=== PATIENT | male | born 1950 | race Caucasian/White ===

== ENCOUNTER 2017-07-10 18:01 | Inpatient (IN) | payer BC ==
[~2017-07-10] VITALS: Ht 172.7 cm; Wt 87.6 kg
[2017-07-10] MEDS ORDERED: KETOROLAC 15 MG INJ IV STA (18:19)
[2017-07-10] MEDS ORDERED: ONDANSETRON 4 MG INJ IV STA (18:19)
[2017-07-10] MEDS ORDERED: SOD CHLORIDE 0.9% 1,000 ML IV STA (18:19)
[2017-07-10] MEDS ORDERED: NITROGLYCERIN (SL) 0.4 MG TAB SL ONE (18:30)
[2017-07-10] MEDS ORDERED: ASPIRIN 81 MG TAB PO ONE (18:30)
[2017-07-10 18:37] LABS: BASOPHIL # 0.1 10^3/ul (0.0-0.1); BASOPHILS % 0.7 % (0.0-2.0); EOSINOPHILS % 0.1 % (0.0-7.0); HEMATOCRIT 43.8 % (42.0-52.0); HEMOGLOBIN 14.9 g/dl (14.0-18.0); LYMPHOCYTES # 1.3 10^3/ul (0.8-2.9); LYMPHOCYTES % 11.7 % (15.0-51.0); MEAN CORPUSCULAR HEMOGLOBIN 30.3 pg (29.0-33.0); MEAN CORPUSCULAR VOLUME 89.2 fl (82.0-101.0); MEAN PLATELET VOLUME 9.5 fl (7.4-10.4); MONOCYTE # 0.7 10^3/ul (0.3-0.9); MONOCYTES % 6.9 % (0.0-11.0); NEUTROPHIL # 8.6 10^3/ul (1.6-7.5); NEUTROPHILS % 80.1 % (39.0-77.0); PLATELET COUNT 156 10^3/UL (140-415); RED BLOOD COUNT 4.91 10^6/ul (4.70-6.10); RED CELL DISTRIBUTION WIDTH 12.7 % (11.5-14.5); WHITE BLOOD COUNT 10.7 10^3/ul (4.8-10.8)
[2017-07-10 18:57] LABS: INR 1.01; PROTIME 13.3 Sec (12.2-14.2)
[2017-07-10 19:00] LABS: ALANINE AMINOTRANSFERASE 31 IU/L (13-69); ALBUMIN 3.7 g/dl (3.3-4.9); ALBUMIN/GLOBULIN RATIO 1.19; ALKALINE PHOSPHATASE 129 IU/L (42-121); ANION GAP 11 (8-16); ASPARTATE AMINO TRANSFERASE 14 IU/L (15-46); BILIRUBIN,INDIRECT 0.1 mg/dl (0-1.1); BILIRUBIN,TOTAL 0.1 mg/dl (0.2-1.3); BLOOD UREA NITROGEN 12 mg/dl (7-20); CALCIUM 8.8 mg/dl (8.4-10.2); CARBON DIOXIDE 25 mmol/L (21-31); CHLORIDE 107 mmol/L (97-110); CREATININE 1.03 mg/dl (0.61-1.24); GLUCOSE 128 mg/dl (70-220); POTASSIUM 4.2 mmol/L (3.5-5.1); SODIUM 139 mmol/L (135-144); TOTAL PROTEIN 6.8 g/dl (6.1-8.1)
--- NOTE | 2017-07-10 19:20 | RADRPT ---
PROCEDURE: XR Chest. CLINICAL INDICATION: Abdominal pain. TECHNIQUE: PA and Lateral views of the chest were obtained. COMPARISON: None. FINDINGS: Heart size is at upper limits of normal. Tortuous calcified thoracic aorta. The lungs are clear. No signs of pleural fluid or pneumothorax are seen. The osseous structures and soft tissues are unremar kable. IMPRESSION: No evidence for active cardiopulmonary disease. RPTAT: [facility] Physician Srinivasa Date Time Electronically viewed and signed by Physician Srinivasa on 07/10/2017 19:20 RS/
[2017-07-10 19:24] LABS: TROPONIN-I < 0.012 ng/ml (0.00-0.12)
--- NOTE | 2017-07-10 19:29 | ERA ---
ER Documentation Chief Complaint Date/Time DATE: 07/10/17 TIME: 19:28 Chief Complaint BIB r90 cp @ 1635 W/DIAPHRETIC& NAUSEA, RELIEF NITRO X3 & 162mg aspirin HPI 66-year-old man brought in by EMS for chest pain which began at rest described as pressure-like sensation substernally. He states he has had similar episodes in the past and has a very strong history of coronary artery disease and multiple coronary artery stents. Discomfort began today at rest while he was at work, it was associated with shortness of breath, diaphoresis, and nausea. He denies vomiting, and states he felt better with nitroglycerin administration by EMS. He also used aspirin and Plavix prior to arrival. Patient denies abdominal pain, no vomiting or diarrhea, no headache or blurry vision. Patient was transported to by EMS without further complications. ROS All systems reviewed and are negative except as per history of present illness. Medications Home Meds Reported Medications Atorvastatin Calcium* (Atorvastatin Calcium*) 20 Mg Tablet, 20 MG PO QHS, #30 TAB 07/10/17 Aspirin* (Aspirin* EC) 325 Mg Tab, 325 MG PO DAILY, TAB 07/10/17 Clopidogrel Bisulfate (Clopidogrel) 75 Mg Tablet, 75 MG PO DAILY, #30 TAB 07/10/17 Allergies Allergies: Coded Allergies: No Known Allergy (Verified , 07/10/17) PMhx/Soc History of Surgery: Yes (LT KNEE) Anesthesia Reaction: No Hx Neurological Disorder: No Hx Respiratory Disorders: Yes (EMPHYSEMA ) Hx Cardiac Disorders: Yes (CT X3 W/ 7 STENTS) Hx Psychiatric Problems: No Hx Miscellaneous Medical Probl: No Hx Alcohol Use: No Hx Substance Use: No Hx Tobacco Use: Yes (1 PACK DAY ) Smoking Status: Current every day smoker FmHx Family History: No diabetes Physical Exam Vitals Vital Signs Date Time Temp Pulse Resp B/P Pulse Ox O2 Delivery O2 Flow Rate FiO2 07/10/17 20:18 97.4 59 14 125/81 99 Room Air 07/10/17 18:47 71 12 113/81 99 Room Air 07/10/17 18:10 98.4 73 16 127/89 97 Physical Exam GENERAL: Well-developed, well-nourished, well-hydrated, in no apparent distress , looks nontoxic in appearance HEENT: Moist mucous membranes, pink conjunctiva, no cervical spine tenderness or step-off deformities, no goiter, no jaundice or icterus, extraocular movements intact without pain. No submandibular induration, and no pharyngeal erythema NEURO: Alert and oriented 3, cranial nerves II through XII intact bilaterally, pupils equal round reactive to light, no focal deficits or facial asymmetry, sensation intact distally Strength 5/5 in upper and lower extremities bilaterally CARDIAC: Regular rate and rhythm, no murmurs rubs or gallops LUNGS: Clear bilaterally no wheezing crackles or stridor ABDOMEN: Soft nontender, no guarding, no rigidity, no rebound, no psoas sign no obturator sign. Normoactive bowel sounds SKIN: Warm and dry to touch, no abrasions, contusions, or hematomas, no lacerations, no ecchymosis, no target lesions, and without ulcers EXTREMITIES: No clubbing cyanosis or edema, calves are bilaterally symmetrical, no Homans sign, no popliteal cord sign. Distal pulses equal and bilateral PSYCH: Normal affect without agitation or irritability Result Diagram: 07/10/17182407/10/171824 Results 24 hrs Laboratory Tests Test 07/10/17 18:25 White Blood Count 10.710^3/ul Red Blood Count 4.9110^6/ul Hemoglobin 14.9g/dl Hematocrit 43.8% Mean Corpuscular Volume 89.2fl Mean Corpuscular Hemoglobin 30.3pg Mean Corpuscular Hemoglobin Concent 34.0g/dl Red Cell Distribution Width 12.7% Platelet Count 99381^3/UL Mean Platelet Volume 9.5fl Neutrophils % 80.1% Lymphocytes % 11.7% Monocytes % 6.9% Eosinophils % 0.1% Basophils % 0.7% Nucleated Red Blood Cells % 0.0/100WBC Neutrophils # 8.610^3/ul Lymphocytes # 1.310^3/ul Monocytes # 0.710^3/ul Eosinophils # 0.010^3/ul Basophils # 0.110^3/ul Nucleated Red Blood Cells # 0.010^3/ul Prothrombin Time 13.3Sec Prothrombin Time Ratio 1.0 INR International Normalized Ratio 1.01 Sodium Level 139mmol/L Potassium Level 4.2mmol/L Chloride Level 107mmol/L Carbon Dioxide Level 25mmol/L Anion Gap 11 Blood Urea Nitrogen 12mg/dl Creatinine 1.03mg/dl Glucose Level 128mg/dl Calcium Level 8.8mg/dl Total Bilirubin 0.1mg/dl Direct Bilirubin 0.00mg/dl Indirect Bilirubin 0.1mg/dl Aspartate Amino Transf (AST/SGOT) 14IU/L Alanine Aminotransferase (ALT/SGPT) 31IU/L Alkaline Phosphatase 129IU/L Troponin I < 0.012ng/ml Total Protein 6.8g/dl Albumin 3.7g/dl Globulin 3.10g/dl Albumin/Globulin Ratio 1.19 Lipase 162U/L Current Medications Medications (Trade) Dose Ordered Sig/Chay Route PRN Reason Start Time Stop Time Status Last Admin Dose Admin Sodium Chloride (NS) 1,000 ml @ 1,000 mls/hr Q1H STAT IV 07/10/17 18:19 07/10/17 19:18 DC 07/10/17 18:43 Ondansetron HCl (Zofran Inj) 4 mg ONCE STAT IV 07/10/17 18:19 07/10/17 18:20 DC Ketorolac Tromethamine (Toradol) 15 mg ONCE STAT IV 07/10/17 18:19 07/10/17 18:20 DC Aspirin (Aspirin) 162 mg ONCE ONCE PO 07/10/17 18:30 07/10/17 18:31 DC Nitroglycerin (Nitroglycerin (Sl Tab) 0.4 Mg) 1 tab ONCE ONCE SL 07/10/17 18:30 07/10/17 18:31 DC IV Flush (NS 3 ml) 3 ml PER PROTOCOL IV 07/10/17 20:00 UNV Lorazepam (Ativan) 0.5 mg Q8H PRN PO ANXIETY 07/10/17 20:00 UNV Ondansetron HCl (Zofran Tab) 4 mg Q6H PRN PO NAUSEA AND/OR VOMITING 07/10/17 20:00 UNV Aspirin (Aspirin) 81 mg DAILY PO 07/11/17 09:00 UNV Clopidogrel Bisulfate (plaVIX) 75 mg DAILY PO 07/11/17 09:00 UNV Famotidine (Pepcid) 20 mg Q12 PO 07/10/17 21:00 UNV Heparin Sodium (Porcine) (Heparin (5000 Units/0.5 ml)) 5,000 unit Q8 SC 07/10/17 22:00 UNV Calcium Carbonate (Tums) 500 mg QID PO 07/10/17 21:00 UNV Metoprolol Tartrate (Lopressor) 12.5 mg BID PO 07/10/17 21:00 UNV Nitroglycerin (Nitroglycerin (Sl Tab) 0.4 Mg) 1 tab Q5M PRN SL CHEST PAIN 07/10/17 20:00 UNV Aspirin (Ecotrin) 325 mg DAILY PO 07/11/17 09:00 UNV Atorvastatin Calcium (Lipitor) 20 mg QHS PO 07/10/17 21:00 UNV Clopidogrel Bisulfate (plaVIX) 75 mg DAILY PO 07/11/17 09:00 UNV Procedures/MDM IV line was established patient was placed on cardiac exercise physiologist rhythm strip revealed a sinus rhythm at about 70 bpm with upright P and T waves. Patient was afebrile. I administered aspirin 162 mg p.o. for cardioprotective measures, nitroglycerin 0.4 mg sublingual 1. Patient had already used medications prior to arrival including clopidogrel. EKG performed, read by me: 68 bpm, normal sinus rhythm, normal axis, no acute ST segment changes, narrow QRS complex, with good R-wave progression in precordial leads. Chest X-ray 1V Interpreted by me: Soft Tissue: No acute abnormalities Bones: No acute abnormalities Mediastinum/Cardiac Silhouette/Lungs: No acute abnormalities CT scan of the abdomen and pelvis was performed revealing chronic calcifications and mild infrarenal abdominal aortic aneurysm. I suspect this is chronic although further imaging will be deferred to admitting team. CBC and electrolytes are normal, liver function tests were normal, troponin was negative. Patient will be admitted to telemetry for continued medical management cardiology consultation, I spoke to research aide Dr. Ramos Nassar, who agreed to consult the patient. Departure Diagnosis: Primary Impression: Chest pain Qualified Code: R07.9 - Chest pain, unspecified type Additional Impression: Aneurysm of infrarenal abdominal aorta Condition: VALERIO Stevens MD Jul 10, 2017 19:29
[2017-07-10] MEDS ORDERED: CLOP75TA27 PO (19:30)
[2017-07-10] MEDS ORDERED: ATOR20TA38 PO (19:31)
[2017-07-10] MEDS ORDERED: ASPI325T32 PO (19:31)
[2017-07-10] MEDS ORDERED: ONDANSETRON 4 MG TAB PO PRN (20:00)
[2017-07-10] MEDS ORDERED: NITROGLYCERIN (SL) 0.4 MG TAB SL PRN (20:00)
[2017-07-10] MEDS ORDERED: NACL 0.9% 3 ML SYG IV SCH (20:00)
[2017-07-10] MEDS ORDERED: LORAZEPAM 0.5 MG TAB PO PRN (20:00)
--- NOTE | 2017-07-10 20:13 | RADRPT ---
PROCEDURE: CT abdomen and pelvis without contrast. CLINICAL INDICATION: Abdominal Pain TECHNIQUE: CT scan of the abdomen and pelvis without contrast was performed. The patient was scan melissa without intravenous contrast. 3-D coronal reformatted images were obtained from the axial [facility] e images. The calculated radiation dose measures 900 mGy centimeters. The CTDI measures 14 mGy One or more of the following dose reduction techniques were used: Automated exposure control. Adjustment of the mA and/or kV according to patient size. Use of iterative reconstruction technique. COMPARISON: None available FINDINGS: CT abdomen: Limited images through the lung bases appear clear. There is prominent coronary artery calcificatio n. The liver is normal in size and density, without intrahepatic biliary dilatation. The spleen and p ancreas are unremarkable noncontrast appearance. The gallbladder appears within normal limits. There is low density enlargement of the adrenal glands, with two nodules on the right measuring 2.0 cm, which appears consistent with adrenal adenomas, and/or hypoplasia. The kidneys appear normal in size and contour. No renal calculus or hydronephrosis is visualized. There is no ascites or retroperitoneal lymphadenopathy. There is a small duodenal diverticulum arising superiorly from the third portion of the duodenum. Vi sualized bowel loops appear otherwise within normal limits. The appendix appears normal. CT pelvis: The urinary bladder appears normal. The prostate is enlarged, 4.8 x 3.9 cm.. There is no abnormal pelvic mass or adenopathy. There is no pelvic free fluid. Visualized osseous structures appear unremarkable. There is a subcutaneous 1.3 cm structure abutting the skin surface overlying the left pubic symphysis, which appears most consistent with a sebaceous cyst. There is moderate aortic calcification. There is slight dilation of the infrarenal abdominal aorta u p to 3.2 cm in diameter. IMPRESSION: 1. Prominent coronary artery calcification. Moderate to prominent aortic and branch vessel calcific ation. 2. The appendix is seen and appears within normal limits. 3. Small duodenal diverticulum. 4. Mild prostatomegaly. 5. Right adrenal adenomas, up to 2.0 cm, and/or hypoplasia. 6. Moderate aortic calcification. Slight aneurysmal dilatation of the infrarenal abdominal aorta, 3 .2 cm. 7. Left anterior pelvis sebaceous cyst. RPTAT: HBST .Nando Cisse MD, MD Date Time Electronically viewed and signed by .Nando Cisse MD, MD on 07/10/2017 20:13 .T/
[2017-07-10] MEDS: CALCIUM CARBONATE 500 MG CHEW TAB PO SCH (21:00)
[2017-07-10] MEDS: METOPROLOL 25 MG TAB PO SCH (21:00)
[2017-07-10 21:23] VITALS: TEMP 97.7
[2017-07-10] MEDS: FAMOTIDINE 20 MG TAB PO SCH (21:49)
[2017-07-10] MEDS: HEPARIN 5,000 UNIT/0.5 ML VIAL SC SCH (21:49)
[2017-07-10] MEDS: ATORVASTATIN 20 MG TAB PO SCH (21:49)
[2017-07-10 22:04] LABS: TROPONIN-I 0.058 ng/ml (0.00-0.12)
[2017-07-10 22:05] LABS: CK-MB 1.42 ng/ml (0.0-2.4)
[2017-07-10 22:22] VITALS: PULSE 70
[2017-07-10 22:29] VITALS: BP 137/85; RESP 19
[2017-07-10 22:30] VITALS: BP 137/85; PULSE 65; RESP 18; Ht 172.7 cm; Wt 87.6 kg
[2017-07-10 23:44] VITALS: BP 136/69; RESP 17
[2017-07-11] VITALS (20 sets, daily range): BP systolic 124–188; BP diastolic 68–107; PULSE 47–58; RESP 11–19
[2017-07-11] MEDS: HEPARIN 5,000 UNIT/0.5 ML VIAL SC SCH (06:01)
[2017-07-11 07:39] LABS: BASOPHIL # 0.1 10^3/ul (0.0-0.1); BASOPHILS % 1.1 % (0.0-2.0); EOSINOPHILS % 0.5 % (0.0-7.0); HEMATOCRIT 41.9 % (42.0-52.0); HEMOGLOBIN 13.6 g/dl (14.0-18.0); LYMPHOCYTES % 25.9 % (15.0-51.0); MEAN CORPUSCULAR HEMOGLOBIN 29.3 pg (29.0-33.0); MEAN CORPUSCULAR HGB CONC 32.5 g/dl (32.0-37.0); MEAN CORPUSCULAR VOLUME 90.3 fl (82.0-101.0); MEAN PLATELET VOLUME 9.8 fl (7.4-10.4); MONOCYTE # 0.7 10^3/ul (0.3-0.9); MONOCYTES % 8.8 % (0.0-11.0); NEUTROPHIL # 4.8 10^3/ul (1.6-7.5); NEUTROPHILS % 63.2 % (39.0-77.0); PLATELET COUNT 147 10^3/UL (140-415); RED BLOOD COUNT 4.64 10^6/ul (4.70-6.10); RED CELL DISTRIBUTION WIDTH 13.2 % (11.5-14.5); WHITE BLOOD COUNT 7.6 10^3/ul (4.8-10.8)
[2017-07-11 07:54] LABS: ALBUMIN 3.1 g/dl (3.3-4.9); ALBUMIN/GLOBULIN RATIO 1.06; BILIRUBIN,INDIRECT 0.2 mg/dl (0-1.1); BILIRUBIN,TOTAL 0.2 mg/dl (0.2-1.3); CREATININE 1.04 mg/dl (0.61-1.24); POTASSIUM 4.5 mmol/L (3.5-5.1)
[2017-07-11 08:13] LABS: CK-MB 1.53 ng/ml (0.0-2.4)
[2017-07-11 08:14] LABS: TROPONIN-I 0.144 ng/ml (0.00-0.12)
[2017-07-11] MEDS ORDERED: CLOPIDOGREL 75 MG TAB PO SCH ×2 (09:00)
[2017-07-11] MEDS ORDERED: ASPIRIN (EC) 325 MG TAB PO SCH (09:00)
[2017-07-11] MEDS: CALCIUM CARBONATE 500 MG CHEW TAB PO SCH ×4 (09:02→20:25)
[2017-07-11] MEDS: ASPIRIN 81 MG TAB PO SCH (09:02)
[2017-07-11] MEDS: FAMOTIDINE 20 MG TAB PO SCH ×2 (09:02→20:25)
[2017-07-11] MEDS: METOPROLOL 25 MG TAB PO SCH ×2 (09:05→20:25)
[2017-07-11 10:17] LABS: ADD UMIC NO; UR ASCORBIC ACID NEGATIVE (NEGATIVE); UR BILIRUBIN (Dip) NEGATIVE (NEGATIVE); UR BLOOD (Dip) NEGATIVE (NEGATIVE); UR CLARITY CLEAR (CLEAR); UR COLOR YELLOW (YELLOW); UR GLUCOSE (Dip) NEGATIVE (NEGATIVE); UR KETONES (Dip) NEGATIVE (NEGATIVE); UR LEUKOCYTE ESTERASE (Dip) NEGATIVE Leu/ul (NEGATIVE); UR NITRITE (Dip) NEGATIVE (NEGATIVE); UR SPECIFIC GRAVITY (Dip) 1.014 (1.003-1.030); UR TOTAL PROTEIN (Dip) NEGATIVE (NEGATIVE); UR UROBILINOGEN (Dip) NEGATIVE (NEGATIVE)
[2017-07-11] MEDS: SOD CHLORIDE 0.9% 1,000 ML IV SCH (11:56)
--- NOTE | 2017-07-11 11:56 | CONS ---
Date/Time of Note Date/Time of Note DATE: 07/11/17 TIME: 11:44 Assessment/Plan Assessment/Plan Chief Complaint/Hosp Course 1) NSTEMI- typical symptoms with strong CAD hx and small trop leak. no acute ekg changes, currently cp free - cont asa 81mg daily - cont plavix 75 mg daily - cont statin - received heparin, hold for LHC - cont bb - plan for C possible PCI given high risk status GERARDO risk score of 4 with elevated markers. plan for r radial approach, pt aware of all risks/benefits/ alternatives, d/w pt and family at bedside. 2) HTN - controlled 3) HLD- on statin 4) Med compliance? - pt states previously not taking meds regularly, though will do so going forwards 5) Smoking- cessation recommend d/w pt x 5 mins Problems: Consultation Date/Type/Reason Admit Date/Time Jul 10, 2017 at 19:26 Date of Consultation: Jul 11, 2017 Type of Consultation: Cardiology Reason for Consultation NSTEMI Referring Provider: BECCA CALLAWAY MD Hx of Present Illness Mr. Red is a 66 y.o. with extensive CAD hx. pt has multiple PCI to RCA since late for primary CAD and ISR of previous stents. Last C 2009 with patent RCA stents and obstructive disease of LAD, s/p bifurcation stenting of mLAD/D1. Pt states did well after but has not f/u in cardiology clinic since 2012. Pt now with sudden onset chest pain/pressure with sweating, nausea L arm pain yesterday. pain lasted 1 hr, called ems and given nitro spray with resolution of pain, pain recurred given 1 additional spray by ems now cp free. no sob, palp, dizziness, vomitting. pt without baseline cp. does smoke 1ppd. takes medications, but often misses them he states. no recent illness f/c/ sweats. denies abd pain. Constitutional: no complaints Eyes: no complaints ENT: no complaints Respiratory: no complaints Cardiovascular: chest pain Gastrointestinal: no complaints Genitourinary: no complaints Musculoskeletal: no complaints Skin: no complaints Neurologic: no complaints Endocrine: no complaints Lymphatic: no complaints Psychological: no complaints Past Medical History Coronary Artery Disease 414.00 Multivessel coronary artery disease.Acute inferior OH and 2 stents prox RCA in [id number] RCA [id number] distal RCA 2006Instent restenosis prx RCA stent and taxus 3.5X24 april 2007Promus 2.75X15 stent mid LAD and ION 2.25X12 minicrush I diag april 2010 Hyperlipidemia 272.4 Hypertension 401.9 Noncompliance With Medical Treatment V15.81 History of Benign Essential Hypertension 401.1 History of Coronary Artery Disease V12.59 History of Hypercholesterolemia 272.0 Past Surgical History Past Surgical Hx: other (PCI) Family History Significant Family History: other (+ mom with CAD/CABG) Social History Alcohol Use: occasionally Smoking Status: Current every day smoker Drug Use: none Exam/Review of Systems Vital Signs Vitals Vital Signs Date Time Temp Pulse Resp B/P Pulse Ox O2 Delivery O2 Flow Rate FiO2 07/11/17 08:20 53 07/11/17 07:46 98.2 18 162/80 97 07/10/17 22:30 Room Air Intake and Output 07/10/17 07/10/17 07/11/17 15:00 23:00 07:00 Intake Total 400 ml Balance 400 ml Exam Constitutional: alert, oriented, well developed Psych: nl mood/affect, no complaints Head: atraumatic, normocephalic Eyes: nl conjunctiva ENMT: nl external ears & nose, nl lips & teeth, nl nasal mucosa & septum Neck: non-tender, supple, No bruits, No jvd Respiratory: clear to auscultation, normal air movement Cardiovascular: nl pulses, regular rate and rhythm, No S3, No S4, No edema, No irregular rhythm, No jugular venous distention ( JVD), No systolic murmur Gastrointestinal: nl liver, spleen, non-tender, soft Musculoskeletal: nl extremities to inspection, nl gait and stance Extremities: normal pulses Neurological: nl mental status, nl speech Results Result Diagram: 07/11/17 0620 07/11/17 0620 Results 24 hrs Laboratory Tests Test 07/10/17 18:25 07/10/17 21:15 07/11/17 06:20 White Blood Count 10.7 7.6 # Red Blood Count 4.91 4.64 L Hemoglobin 14.9 13.6 L Hematocrit 43.8 41.9 L Mean Corpuscular Volume 89.2 90.3 Mean Corpuscular Hemoglobin 30.3 29.3 Mean Corpuscular Hemoglobin Concent 34.0 32.5 Red Cell Distribution Width 12.7 13.2 Platelet Count 156 147 Mean Platelet Volume 9.5 9.8 Neutrophils % 80.1 H 63.2 Lymphocytes % 11.7 L 25.9 Monocytes % 6.9 8.8 Eosinophils % 0.1 0.5 Basophils % 0.7 1.1 Nucleated Red Blood Cells % 0.0 0.0 Neutrophils # 8.6 H 4.8 Lymphocytes # 1.3 2.0 Monocytes # 0.7 0.7 Eosinophils # 0.0 0.0 Basophils # 0.1 0.1 Nucleated Red Blood Cells # 0.0 0.0 Prothrombin Time 13.3 Prothrombin Time Ratio 1.0 INR International Normalized Ratio 1.01 Sodium Level 139 141 Potassium Level 4.2 4.5 Chloride Level 107 109 Carbon Dioxide Level 25 28 Anion Gap 11 9 Blood Urea Nitrogen 12 11 Creatinine 1.03 1.04 Glucose Level 128 87 # Calcium Level 8.8 9.0 Total Bilirubin 0.1 L 0.2 Direct Bilirubin 0.00 0.00 Indirect Bilirubin 0.1 0.2 Aspartate Amino Transf (AST/SGOT) 14 L 13 L Alanine Aminotransferase (ALT/SGPT) 31 32 Alkaline Phosphatase 129 H 114 Troponin I < 0.012 0.058 0.144 *H Total Protein 6.8 6.0 L Albumin 3.7 3.1 L Globulin 3.10 2.90 Albumin/Globulin Ratio 1.19 1.06 Lipase 162 Creatine Kinase 75 68 Creatine Kinase Index 1.9 2.3 Creatinine Kinase MB (Mass) 1.42 1.53 Medications Medications Current Medications Lorazepam (Ativan) 0.5 mg Q8H PRN PO ANXIETY; Start 07/10/17 at 20:00 Ondansetron HCl (Zofran Tab) 4 mg Q6H PRN PO NAUSEA AND/OR VOMITING; Start at 20:00 Aspirin (Aspirin) 81 mg DAILY PO Last administered on 07/11/17 09:02; Admin Dose 81 MG; Start 07/11/17 at 09:00 Famotidine (Pepcid) 20 mg Q12 PO Last administered on 07/11/17 09:02; Admin Dose 20 MG; Start 07/10/17 at 21:00 Heparin Sodium (Porcine) (Heparin (5000 Units/0.5 ml)) 5,000 unit Q8 SC Last administered on 07/11/17 06:01; Admin Dose 5,000 UNIT; Start 07/10/17 at 22:00 Calcium Carbonate (Tums) 500 mg QID PO Last administered on 07/11/17 09:02; Admin Dose 500 MG; Start 07/10/17 at 21:00 Metoprolol Tartrate (Lopressor) 12.5 mg BID PO Last administered on 07/11/17 09:05; Admin Dose 12.5 MG; Start 07/10/17 at 21:00 Nitroglycerin (Nitroglycerin (Sl Tab) 0.4 Mg) 1 tab Q5M PRN SL CHEST PAIN; Start 07/10/17 at 20:00 Aspirin (Ecotrin) 325 mg DAILY PO Last administered on 07/11/17 09:02; Admin Dose 325 MG; Start 07/11/17 at 09:00 Atorvastatin Calcium (Lipitor) 20 mg QHS PO Last administered on 07/10/17 21: 49; Admin Dose 20 MG; Start 07/10/17 at 21:00 Clopidogrel Bisulfate (plaVIX) 75 mg DAILY PO Last administered on 07/11/17 09 :02; Admin Dose 75 MG; Start 07/11/17 at 09:00 Procedures Procedures CXR images reviewed no acute abnl ct abd report reviewed, small abd anuerysm, + cor calc, pvd EKG reviewed: NSR, no st-t wave abnl Tele reviewed sinus jacob/nsr HOA LOYOLA Jul 11, 2017 11:56
[2017-07-11] MEDS ORDERED: DIAZEPAM 5 MG TAB PO ONE (12:00)
--- NOTE | 2017-07-11 12:04 | RADRPT ---
Echocardiogram Report Patient Name: DREAD CAAL Gender: Male Date: 1950 Study Date: 11-Jul-2017 Erecting Crane Operator: Sim Nuñez [facility] Location: [id number] Ref. Physician: DARRION LOYOLA Quality: Adequate Procedures: Transthoracic echocardiogram with complete 2D, M-Mode, and doppler examination. Indications: NSTEMI. 2D/M Mode Doppler Measurement Value Normal Ranges Measurement Value Normal Ranges LVIDd 2D 4.6 3.5 - 5.6 cm AV Peak [place] 1.3 m/sec LVIDs 2D 2.1 2.1 - 4.1 cm AV Peak PG 7.0 mmHg FS 2D 55.3 % LVOT Peak [place] 1.0 m/sec LVPWd 2D 0.9 0.6 - 1.1 cm LVOT Peak PG 4.0 mmHg IVSd 2D 1.1 0.6 - 1.1 cm MV E Peak [place] 0.6 m/sec IVS/LVPW 2D 1.1 MV A Peak [place] 0.7 m/sec AoR Diam 2D 3.4 2.0 - 3.7 cm MV E/A 0.8 LA/Ao 2D 1 0 - 1 MV Decel Time 197 msec EDV 2D 99.3 cm3 MV E/A 0.8 ESV 2D 8.9 cm3 TR Peak [place] 2.2 m/sec LA Dimen 2D 3.1 2.3 - 4.0 cm TR Peak PG 18.0 mmHg RVSP 26.0 mmHg Findings Left Ventricle: Normal left ventricular systolic function. Normal left ventricular cavity size. Ejection fraction is visually estimated at 55 %. Tissue Doppler/Mitral Doppler indices are consistent with impaired relaxation (Stage I diastolic dysfunction). These segments of the LV are hypokinetic inferior base segment. Right Ventricle: Normal right ventricular size. Normal right ventricular systolic function. Left Atrium: The left atrium is normal in size. Right Atrium: The right atrium is normal in size. Mitral Valve: Normal appearance and function of the mitral valve with trace physiologic regurgitation. Aortic Valve: Trileaflet aortic valve. Tricuspid Valve: Normal appearance of the tricuspid valve. Normal right ventricular systolic pressure. Estimated peak PA systolic pressure 26 mmHg. There is trace tricuspid regurgitation. Pulmonic Valve: Normal pulmonic valve appearance. Pericardium: Normal pericardium with no significant pericardial effusion. Aorta: Normal aortic root. IVC: Dilated IVC with respiratory collapse consistent with elevated right atrial pressure. Conclusions Normal left ventricular systolic function. Normal left ventricular cavity size. Ejection fraction is visually estimated at 55 %. Tissue Doppler/Mitral Doppler indices are consistent with impaired relaxation (Stage I diastolic dysfunction). These segments of the LV are hypokinetic inferior base segment. Normal right ventricular size. Normal right ventricular systolic function. The left atrium is normal in size. Normal appearance of the tricuspid valve. Normal right ventricular systolic pressure. Estimated peak PA systolic pressure 26 mmHg. There is trace tricuspid regurgitation. Normal pericardium with no significant pericardial effusion. Normal aortic root. Dilated IVC with respiratory collapse consistent with elevated right atrial pressure. No Vegetation, masses, or thrombi seen. Electronically Signed By: Darrion Loyola 11-Jul-2017 12:03:41 -0700 Patient Name: DREAD CAAL Study Date: 11-Jul-2017 [id number]
--- NOTE | 2017-07-11 14:24 | HP ---
Date/Time of Note Date/Time of Note DATE: 07/11/17 TIME: 14:16 Assessment/Plan VTE Prophylaxis VTE Prophylaxis Intervention: heparin Lines/Catheters IV Catheter Type (from [facility]): Saline Lock Urinary Cath still in place: No Assessment/Plan Problems: (1) NSTEMI (non-ST elevated myocardial infarction) Status: Acute Comment: He has a positive troponin leak. Fortunately does not appear to be a significantly complicated issue. However he does need cardiac cath which is arranged for today. Further plans based on results of the study read please note he may have a history of heart failure and that will have to be evaluated during the catheterization. I will give him Mucomyst with a catheterization (2) Hyperlipidemia Status: Chronic Comment: Sinew statin therapy and the patient is to take this on a regular basis Qualifiers: Hyperlipidemia type: pure hypercholesterolemia Qualified Code: E78.00 - Pure hypercholesterolemia (3) Tobacco abuse Status: Chronic Comment: He is not smoking hospital he declines to have a nicotine patch. He has been extensively counseled by everyone involved in his care again (4) COPD (chronic obstructive pulmonary disease) Status: Chronic Comment: Careful observation for this we may need to treat Qualifiers: COPD type: unspecified COPD Qualified Code: J44.9 - Chronic obstructive pulmonary disease, unspecified COPD type (5) Family history of coronary artery disease Comment: Noted. (6) Erectile dysfunction Status: Chronic Comment: Noted. He has been counseled not to use his Levitra while he is in the acute coronary syndrome phase Qualifiers: Erectile dysfunction type: vasculogenic Vasculogenic erectile dysfunction type: due to arterial insufficiency Qualified Code: N52.01 - Erectile dysfunction due to arterial insufficiency (7) Noncompliance Status: Chronic Comment: Again re-counseled. HPI/ROS Admit Date/Time Admit Date/Time Jul 10, 2017 at 19:26 Hx of Present Illness 66-year-old male with history of known coronary artery disease with risk factors of hyperlipidemia; smoking; positive family history; he is not diabetic; not hypertensive; uric acid levels are in the 6 range. His prior history of stenting multiple times. He yesterday was at his office and developed sensation of a squeezing in his chest with shortness of breath nausea sensation of sweatiness and the need to defecate. He laid down and waited 1 hour to see if it would go away. At that point he called his son to come in the locked building he was in who then summoned paramedics who brought him to the emergency room. ROS Constitutional: no complaints Eyes: no complaints ENT: no complaints Respiratory: no complaints Cardiovascular: chest pain Gastrointestinal: nausea Genitourinary: no complaints Musculoskeletal: no complaints Skin: no complaints Neurologic: no complaints Lymphatic: no complaints Psychological: anxiety (Reports stressed with work) PMH/Family/Social Past Medical History 1) organic heart disease-coronary artery disease-status post PCI with stenting multiple times-possible history of CHF 2 years ago; 2) hyperlipidemia; 3) tobacco abuse; 4) erectile dysfunction; 5) noncompliance: 6) usual childhood diseases: 7) COPD Medical History: angina, coronary artery disease Past Surgical History Status post left knee surgery; status post PCI with stenting multiple times Past Surgical Hx: other (PCI) Family History Significant Family History: heart disease, hypertension Social History 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 [employer] Alcohol Use: occasionally Smoking Status: Current every day smoker Drug Use: none Exam/Review of Systems Vital Signs Vitals Vital Signs Date Time Temp Pulse Resp B/P Pulse Ox O2 Delivery O2 Flow Rate FiO2 07/11/17 12:08 51 07/11/17 11:43 97.6 19 156/90 97 07/10/17 22:30 Room Air Intake and Output 07/10/17 07/10/17 07/11/17 15:00 23:00 07:00 Intake Total 400 ml Balance 400 ml Exam Constitutional: alert, oriented Psych: anxiety (Trying to hide his level of anxiety), no complaints Head: atraumatic, normocephalic ENMT: mucosa pink and moist, nl external ears & nose, nl lips & teeth, nl nasal mucosa & septum Neck: non-tender, supple Respiratory: clear to auscultation, normal air movement Cardiovascular: nl pulses, regular rate and rhythm Gastrointestinal: nl liver, spleen, non-tender, soft Extremities: normal pulses Neurological: STRUCTURAL METAL FABRICATOR APPRENTICE II-XII intact, nl mental status, nl speech, nl strength Labs Result Diagram: 07/11/1761907/11/17619 Medications Medications Current Medications Lorazepam (Ativan) 0.5 mg Q8H PRN PO ANXIETY; Start 07/10/17 at 20:00 Aspirin (Aspirin) 81 mg DAILY PO Last administered on 07/11/17t 09:02; Admin Dose 81 MG; Start 07/11/17 at 09:00 Famotidine (Pepcid) 20 mg Q12 PO Last administered on 07/11/17 09:02; Admin Dose 20 MG; Start 07/10/17 at 21:00 Calcium Carbonate (Tums) 500 mg QID PO Last administered on 07/11/17 13:57; Admin Dose 500 MG; Start 07/10/17 at 21:00 Metoprolol Tartrate (Lopressor) 12.5 mg BID PO Last administered on 07/11/17 09:05; Admin Dose 12.5 MG; Start 07/10/17 at 21:00 Nitroglycerin (Nitroglycerin (Sl Tab) 0.4 Mg) 1 tab Q5M PRN SL CHEST PAIN; Start 07/10/17 at 20:00 Atorvastatin Calcium (Lipitor) 20 mg QHS PO Last administered on 07/10/17 21: 49; Admin Dose 20 MG; Start 07/10/17 at 21:00 Clopidogrel Bisulfate 75 mg 75 mg DAILY PO Last administered on 07/11/17 09:02 ; Admin Dose 75 MG; Start 07/11/17 at 09:00 Sodium Chloride (NS) 1,000 ml @ 75 mls/hr [id number] IV Last administered on 07/11 11:56; Admin Dose 75 MLS/HR; Start 07/11/17 at 11:56 Ondansetron HCl (Zofran Inj) 4 mg Q6H PRN IV NAUSEA AND/OR VOMITING; Start at 14:30 Acetylcysteine (Nac) 1,200 mg BID PO ; Start 07/11/17 at 21:00; Stop 07/14/17 at 20:59 MILAGROS ENGLAND MD Jul 11, 2017 14:24
[2017-07-11] MEDS ORDERED: ONDANSETRON 4 MG INJ IV PRN ×2 (14:30→18:30)
[2017-07-11] MEDS ORDERED: LIDOCAINE 1% (MDV) 20 ML INJ ONE (16:13)
[2017-07-11] MEDS ORDERED: HEPARIN 25000 UNIT/250 ML ONE (16:13)
[2017-07-11] MEDS ORDERED: HEPARIN 25000 UNITS/250 ML 250 ML ONE (16:13)
[2017-07-11] MEDS ORDERED: HEPARIN 1000 UNITS/ML 10 ML INJ ONE (16:47)
[2017-07-11] MEDS ORDERED: IODIXANOL LOCM 100 ML BTL ONE (16:47)
[2017-07-11] MEDS ORDERED: FENTAnyl 50 MCG/ML VIAL ONE (16:47)
[2017-07-11] MEDS ORDERED: VERAPAMIL 5 MG INJ ONE (16:48)
[2017-07-11] MEDS ORDERED: MIDAZOLAM 1 MG/ML 2 ML INJ ONE ×2 (16:48→17:42)
[2017-07-11] MEDS ORDERED: NITROGLYCERIN (IC) 100 MCG/ML INJ ONE (16:48)
[2017-07-11] MEDS ORDERED: PRASUGREL HYDROCHLORIDE 10 MG TABLET PO ONE (17:11)
[2017-07-11] MEDS ORDERED: SOD CHLORIDE 0.9% 1,000 ML IV SCH (18:13)
[2017-07-11] MEDS ORDERED: AL HYDROX/MG HYDROX/SIMETH 30 ML CUP PO PRN (18:30)
[2017-07-11] MEDS ORDERED: ACETAMINOPHEN 325 MG TAB PO PRN (18:30)
[2017-07-11] MEDS ORDERED: OXYCODONE/ACETAMINOPHEN (5/325) TAB PO PRN (18:30)
--- NOTE | 2017-07-11 18:48 | OPR ---
Date/Time of Note Date/Time of Note DATE: 07/11/17 TIME: 18:46 Operative Report Free Text/Dictation PROCEDURE PERFORMED 1. Left heart catheterization 2. Administration of Moderate Sedation 3. Percutaneous coronary intervention of right posterior lateral artery with drug-eluting stent x1. 4. Percutaneous coronary intervention of mid left anterior descending artery with drug-eluting stent x1. PREOPERATIVE DIAGNOSES: 1. Non-ST myocardial infarction. 2. Coronary artery disease, status post multiple percutaneous coronary interventions. POSTOPERATIVE DIAGNOSES: 1. Non-ST elevation myocardial infarction. 2. Coronary artery disease, multivessel. 3. Successful PCI to LAD with VEGA x 1 and rPL with VEGA x1 WATER OPERATOR: Hoa Morgan MD PRIMARY CARE PHYSICIAN: Shakir Rivera MD HISTORY: Mr. Red is a pleasant 66-year-old man with extensive history of coronary artery disease s/p multiple PCI to RCA and bifurcation PCI to LAD/D1 2009. Pt presented with NSTEMI and severe chest pain. Given history and elevated GERARDO risk score, decision was made to proceed with [facility] possible PCI, pt and family aware of all risks/benefits of procedure. PROCEDURE DESCRIPTION: Right wrist was prepped and draped in usual sterile fashion and anesthetized with 1% lidocaine solution. A 6-Thai slender sheath was placed in the right radial artery without difficulty using through and through technique. IA nitoglycerine and verapamil given. A 6-Thai TIG diagnostic catheter was advanced to the ascending aorta over a wire and cineangiography was performed of the left and right coronary arteries TIG was then advanced over wire across aortic valve into the LV and pressure measured. Decision was made to proceed with PCI of RCA and LAD given severe disease in both arteries with NSTEMI and unclear culprit artery. PERCUTANEOUS CORONARY INTERVENTION DESCRIPTION: The patient was given additional IV heparin and ACT was rechecked and confirmed to be in therapeutic range. PO aspirin given prior to arrival in labor relations teacher and patient loaded with po prasugrel prior to PCI. A IL 4.0 6Fr guide was advanced to RCA, A 180 cm 0.014 inch Runthrough wire was then advanced to the distal right PL artery without difficulty. A 2.0 x 12 mm Emerge balloon was advanced to rPL lesion and inflated. The balloon was removed and exchanged for a 2.5 x 15mm Xience Alpine drug eluting stent which was deployed at lesion overlapping previous stent to high pressure. Stent balloon removed and exchanged for a 3.0 x 12mm NC balloon which was inflated to high pressure in stent for post dilation. balloon and wire removed and angiograms obtained showing good stent apposition and expansion without complication Attention then turned to LAD. IL 4.0 6Fr guide was used to engage LAD, A 180 cm 0.014 inch Runthrough wire was then advanced to the distal LAD without difficulty. A 2.0 x 12 mm Emerge balloon was advanced to mid LAD lesion and inflated. The balloon was removed and exchanged for a 2.5 x 12 mm Emerge balloon which was advanced to mid LAD lesion and inflated. The balloon was removed and exchanged for a 2.75 x 20mm Synergy drug eluting stent which was deployed at lesion overlapping previous stent to high pressure. Stent balloon removed and exchanged for a 3.25 x 12mm NC balloon which was inflated to high pressure in stent for post dilation. balloon and wire removed and repeat angiograms were obtained after IC nitroglycerin given showed good stent apposition and expansion, as well as no evidence of complication such as perforation or distal embolization or dissection. All catheters and wires were then removed. The patient tolerated the procedure well and was without any chest pain at completion of procedure. Hemostasis was obtained of the right radial artery with a TR band. Estimated blood loss was less than 70 mL. No specimens were obtained: MODERATE SEDATION SUMMARY: Karlie Kumar RN was dedicated to monitoring the patient's level of consciousness and physiological status while I administered moderate sedation. Total intraprocedural time was greater than 15 min HEMODYNAMICS: LVEDP was 12 mmHg. No significant gradient on LVEDP on pullback. FINDINGS: 1. Left main coronary artery: This is a large vessel with mild proximal disease 20%. 2. Left anterior descending artery: This is a large wrap around vessel. There is a previously placed stent in mid LAD after S1. with 90% ISR at origin of stent. D1 has bifurcation stent which is occluded with GERARDO 0 flow in D1 artery. more distal portion of mLAD has mild diffuse disease 20% followed by 50 % stenosis in early portion of distal LAD. 3. Right coronary artery: Dominant vessel. Proximal RCA is aneurysmal. Mid RCA has a patent overlapping stents extending to distal RCA prior to rPL/rPDA bifurcation. There is diffuse ISR in the stents maximum 30%. rPDA is long and average in size without disease. rPL is a large long branch with patent proximal stent with 99% ISR at origin of stent. 4. Left circumflex artery: Small non dominant. proximal 30% disease. 5. Ramus Intermedius- Average sized artery. 30% proximal and 30% mid stenosis. Left Ventriculogram: global hypokinesis on left ventriculogram, estimated ejection fraction of 35% to 40%. PERCUTANEOUS CORONARY INTERVENTION LESION DESCRIPTION: 1) right PL artery: Prestenosis is 99%, poststenosis 0%. Pre-GERARDO flow 3, post -GERARDO flow 3 Status post percutaneous coronary intervention with Alpine 2.5 x 15 mm drug- eluting stent x1., post-dilated with a 3.0 x 12 mm NC balloon 2) mid LAD: Prestenosis is 90%, poststenosis 0%. Pre-GERARDO flow 3, post-GERARDO flow 3 Status post percutaneous coronary intervention with Synergy 2.75 x 20 mm drug- eluting stent x1., post-dilated with a 3.25 x 12 mm NC balloon CONCLUSIONS: 1. Multivessel coronary artery disease with patent stents in RCA and LAD vessels, chronically occluded stent in D1 2. Severe ISR at origin of rPL and mid LAD stents 3. Successful PCI with VEGA x1 to mid LAD and VEGA x 1 to rPL 4. Normal LV filling pressures 4.. Moderate LV systolic dysfunction with global hypokinesis on left ventriculogram, estimated ejection fraction of 35% to 40%. RECOMMENDATIONS: 1. Aspirin 81 mg p.o. daily. 2. Prasugrel 10 p.o. daily for 12 months. Given NSTEMI and given multiple vessel revascularization with multiple overlapping stents, I would recommend to continue indefinitely if no contraindication. 3. Continued maximal medical therapy with beta angie and statin therapy. 4. Smoking cessation recommended 5. Consider outpatient referral to cardiac rehab Surgeon see signature line HOA MORGAN Jul 11, 2017 18:48
[2017-07-11] MEDS: ATORVASTATIN 20 MG TAB PO SCH (20:25)
[2017-07-11] MEDS: ACETYLCYSTEINE 600 MG CAP PO SCH (20:27)
[2017-07-11] MEDS ORDERED: FLUTICASONE 0.05% 16 GM NAS SPRAY NASAL SCH (22:00)
[2017-07-11] MEDS ORDERED: LEVALBUTEROL (NEB) 0.31 MG/3 ML AMP HHN PRN (22:00)
[2017-07-11] MEDS ORDERED: AMLODIPINE 5 MG TAB PO ONE (22:00)
[2017-07-11] MEDS: FLUTICASONE 0.05% 16 GM NAS SPRAY NASAL SCH (22:16)
[2017-07-12] VITALS (18 sets, daily range): BP systolic 115–187; BP diastolic 65–128; PULSE 49–66; RESP 10–17
[2017-07-12] MEDS: SOD CHLORIDE 0.9% 1,000 ML IV SCH (01:14)
[2017-07-12] MEDS: ASPIRIN 81 MG TAB PO SCH (08:25)
[2017-07-12] MEDS: FLUTICASONE 0.05% 16 GM NAS SPRAY NASAL SCH (08:25)
[2017-07-12] MEDS: ACETYLCYSTEINE 600 MG CAP PO SCH (08:26)
[2017-07-12] MEDS: CALCIUM CARBONATE 500 MG CHEW TAB PO SCH (08:26)
[2017-07-12] MEDS: FAMOTIDINE 20 MG TAB PO SCH (08:26)
[2017-07-12] MEDS: METOPROLOL 25 MG TAB PO SCH (08:27)
[2017-07-12] MEDS ORDERED: PRASUGREL HYDROCHLORIDE 10 MG TABLET PO SCH (09:00)
--- NOTE | 2017-07-12 10:06 | CONS ---
Date/Time of Note Date/Time of Note DATE: 07/12/17 TIME: 09:56 Assessment/Plan Assessment/Plan Chief Complaint/Hosp Course 1) NSTEMI- s.p PCI of ISR of rPL and mLAD. doing well no cp post procedure. ekg stable no sig change - cont asa 81mg daily - con prasugrel 10mg daily - cont statin - cont bb, low dose unable to titrate due to resting bradycardia - f/u as outpt 2) HTN - controlled, restart home meds. cont home bp monitoring, low na diet. 3) HLD- on statin 4) Smoking- cessation recommend d/w pt x 5 mins Problems: Consultation Date/Type/Reason Admit Date/Time Jul 10, 2017 at 19:26 Initial Consult Date 07/11/17 Type of Consultation: Cardiology Referring Provider: BECCA CALLAWAY MD 24 HR Interval Summary Free Text/Dictation pt doing well, no issues overnight. no cp/sob. no events on tele. reviewed, jacob upper 40s-60s. Detailed Summary Respiratory: no complaints Cardiovascular: no complaints Gastrointestinal: no complaints Exam/Review of Systems Vital Signs Vitals Vital Signs Date Time Temp Pulse Resp B/P Pulse Ox O2 Delivery O2 Flow Rate FiO2 07/12/17 09:02 50 07/12/17 09:00 15 151/92 97 Room Air 07/12/17 08:00 98.3 07/11/17 20:56 21 Intake and Output 07/11/17 07/11/17 07/12/17 15:00 23:00 07:00 Intake Total 300 ml 1065 ml 550 ml Output Total 450 ml 900 ml 200 ml Balance -150 ml 165 ml 350 ml Exam Constitutional: alert, oriented, well developed Psych: nl mood/affect, no complaints Head: atraumatic, normocephalic Eyes: nl conjunctiva ENMT: nl external ears & nose, nl lips & teeth, nl nasal mucosa & septum Neck: non-tender, supple, No bruits, No jvd Respiratory: clear to auscultation, normal air movement Cardiovascular: nl pulses, regular rate and rhythm, No S3, No S4, No edema, No irregular rhythm, No jugular venous distention ( JVD), No systolic murmur Gastrointestinal: nl liver, spleen, non-tender, soft Musculoskeletal: nl extremities to inspection, nl gait and stance Extremities: normal pulses Neurological: nl mental status, nl speech Results Result Diagram: 07/11/17 0620 07/11/17 0620 Medications Medications Current Medications Lorazepam (Ativan) 0.5 mg Q8H PRN PO ANXIETY Last administered on 07/12/17 01: 52; Admin Dose 0.5 MG; Start 07/10/17 at 20:00 Aspirin (Aspirin) 81 mg DAILY PO Last administered on 07/12/17 08:25; Admin Dose 81 MG; Start 07/11/17 at 09:00 Famotidine (Pepcid) 20 mg Q12 PO Last administered on 07/12/17 08:26; Admin Dose 20 MG; Start 07/10/17 at 21:00 Calcium Carbonate (Tums) 500 mg QID PO Last administered on 07/12/17 08:26; Admin Dose 500 MG; Start 07/10/17 at 21:00 Metoprolol Tartrate (Lopressor) 12.5 mg BID PO Last administered on 07/12/17 08:27; Admin Dose 12.5 MG; Start 07/10/17 at 21:00 Nitroglycerin (Nitroglycerin (Sl Tab) 0.4 Mg) 1 tab Q5M PRN SL CHEST PAIN; Start 07/10/17 at 20:00 Atorvastatin Calcium 20 mg 20 mg QHS PO Last administered on 07/11/17 20:25; Admin Dose 20 MG; Start 07/10/17 at 21:00 Sodium Chloride (NS) 1,000 ml @ 75 mls/hr [id number] IV Last administered on 07/12 01:14; Admin Dose 75 MLS/HR; Start 07/11/17 at 11:56; Status Future hold Acetylcysteine (Nac) 1,200 mg BID PO Last administered on 07/12/17 08:26; Admin Dose 1,200 MG; Start 07/11/17 at 21:00; Stop 07/14/17 at 20:59 Prasugrel (Effient) 10 mg DAILY PO Last administered on 07/12/17 08:25; Admin Dose 10 MG; Start 07/12/17 at 09:00 Acetaminophen (Tylenol Tab) 650 mg Q4H PRN PO NON-CARDIAC PAIN LEVEL 1-3; Start 07/11/17 at 18:30 Oxycodone/ Acetaminophen (Percocet (5/ 325)) 1 tab Q4H PRN PO REPORTED NON- CARDIAC PAIN 4-7 Last administered on 07/11/17 20:25; Admin Dose 1 TAB; Start 07/11/17 at 18:30 Al Hydrox/Mg Hydrox/Simethicone (Mag-Al Plus) 30 ml Q4H PRN PO GASTROINTESTINAL UPSET; Start 07/11/17 at 18:30 Ondansetron HCl (Zofran Inj) 4 mg Q4H PRN IV NAUSEA AND/OR VOMITING; Start at 18:30 Fluticasone Propionate (Flonase 0.05% Nasal) 1 spray BID NASAL Last administered on 07/12/17 08:25; Admin Dose 1 SPRAY; Start 07/11/17 at 22:09 Clonidine (Catapres) 0.1 mg Q8H PRN PO ELEVATED SYSTOLIC BP Last administered on 07/12/17 02:32; Admin Dose 0.1 MG; Start 07/12/17 at 00:30 Procedures Procedures tele reviewed per hpi HOA LOYOLA Jul 12, 2017 10:06
[2017-07-12 10:10] LABS: BASOPHIL # 0.1 10^3/ul (0.0-0.1); BASOPHILS % 0.8 % (0.0-2.0); EOSINOPHILS # 0.1 10^3/ul (0.0-0.5); EOSINOPHILS % 1.1 % (0.0-7.0); HEMATOCRIT 41.7 % (42.0-52.0); HEMOGLOBIN 14.1 g/dl (14.0-18.0); LYMPHOCYTES # 1.4 10^3/ul (0.8-2.9); LYMPHOCYTES % 18.7 % (15.0-51.0); MEAN CORPUSCULAR HEMOGLOBIN 29.7 pg (29.0-33.0); MEAN CORPUSCULAR HGB CONC 33.8 g/dl (32.0-37.0); MEAN PLATELET VOLUME 9.9 fl (7.4-10.4); MONOCYTE # 0.6 10^3/ul (0.3-0.9); MONOCYTES % 8.1 % (0.0-11.0); NEUTROPHIL # 5.2 10^3/ul (1.6-7.5); PLATELET COUNT 148 10^3/UL (140-415); RED BLOOD COUNT 4.74 10^6/ul (4.70-6.10); RED CELL DISTRIBUTION WIDTH 12.9 % (11.5-14.5); WHITE BLOOD COUNT 7.3 10^3/ul (4.8-10.8)
[2017-07-12 10:34] LABS: CALCIUM 9.6 mg/dl (8.4-10.2); CREATININE 0.98 mg/dl (0.61-1.24); POTASSIUM 4.4 mmol/L (3.5-5.1)
--- NOTE | 2017-07-12 12:03 | DS ---
Date/Time of Note Date/Time of Note DATE: 07/12/17 TIME: 12:00 Discharge Summary Admission/Discharge Info Admit Date/Time Jul 10, 2017 at 19:26 Discharge Date/Time July 12, 2017 Discharge Diagnosis NSTEMI-acute coronary syndrome; hyperlipidemia; COPD; tobacco abuse; medical noncompliance; Patient Condition: Fair Consults Cardiology-Dr. Stanton Procedures Left heart cardiac catheterization with PCI and stent 2 Hx of Present Illness 66-year-old male with history of known coronary artery disease with risk factors of hyperlipidemia; smoking; positive family history; he is not diabetic; not hypertensive; uric acid levels are in the 6 range. His prior history of stenting multiple times. He yesterday was at his office and developed sensation of a squeezing in his chest with shortness of breath nausea sensation of sweatiness and the need to defecate. He laid down and waited 1 hour to see if it would go away. At that point he called his son to come in the locked building he was in who then summoned paramedics who brought him to the emergency room. Hospital Course 1) NSTEMI- s.p PCI of ISR of rPL and mLAD. doing well no cp post procedure. ekg stable no sig change - cont asa 81mg daily - con prasugrel 10mg daily - cont statin - cont bb, low dose unable to titrate due to resting bradycardia - f/u as outpt 2) HTN - controlled, restart home meds. cont home bp monitoring, low na diet. 3) HLD- on statin 4) Smoking- cessation recommend d/w pt x 5 mins 66-year-old male admitted with acute coronary syndrome. He was stabilized and taken to the cardiac Insulating Machine Operator expeditiously and had PCI with stenting of 2 lesions discussed above. He tolerated the procedures well without any complications including stable renal function pre-and post intervention. He has been carefully and repetitively counseled about smoking cessation. He is now stable for discharge in improved condition as compared to the time of admission. He has no known communicable diseases he is not a hazard to others his rehabilitation potential is good. Home Meds Reported Medications Atorvastatin Calcium* (Atorvastatin Calcium*) 20 Mg Tablet, 20 MG PO QHS, #30 TAB 07/10/17 Aspirin* (Aspirin* EC) 325 Mg Tab, 325 MG PO DAILY, TAB 9/25/17 Clopidogrel Bisulfate (Clopidogrel) 75 Mg Tablet, 75 MG PO DAILY, #30 TAB 07/10/17 Follow-up Plan Shovel Oiler in 2 weeks; primary care doctor in 4 weeks Primary Care Provider Shakir Rivera MD Time spent on discharge: > 30 minutes Pending Labs Laboratory Tests Test 07/12/17 09:15 White Blood Count 7.310^3/ul (4.8-10.8) Red Blood Count 4.7410^6/ul (4.70-6.10) Hemoglobin 14.1g/dl (14.0-18.0) Hematocrit 41.7% (42.0-52.0) Mean Corpuscular Volume 88.0fl (82.0-101.0) Mean Corpuscular Hemoglobin 29.7pg (29.0-33.0) Mean Corpuscular Hemoglobin Concent 33.8g/dl (32.0-37.0) Red Cell Distribution Width 12.9% (11.5-14.5) Platelet Count 09147^3/UL (140-415) Mean Platelet Volume 9.9fl (7.4-10.4) Neutrophils % 71.0% (39.0-77.0) Lymphocytes % 18.7% (15.0-51.0) Monocytes % 8.1% (0.0-11.0) Eosinophils % 1.1% (0.0-7.0) Basophils % 0.8% (0.0-2.0) Nucleated Red Blood Cells % 0.0/100WBC (0.0-0.0) Neutrophils # 5.210^3/ul (1.6-7.5) Lymphocytes # 1.410^3/ul (0.8-2.9) Monocytes # 0.610^3/ul (0.3-0.9) Eosinophils # 0.110^3/ul (0.0-0.5) Basophils # 0.110^3/ul (0.0-0.1) Nucleated Red Blood Cells # 0.010^3/ul (0.0-0.0) Sodium Level 137mmol/L (135-144) Potassium Level 4.4mmol/L (3.5-5.1) Chloride Level 104mmol/L (97-110) Carbon Dioxide Level 27mmol/L (21-31) Anion Gap 10 (8-16) Blood Urea Nitrogen 11mg/dl (7-20) Creatinine 0.98mg/dl (0.61-1.24) Glucose Level 118mg/dl (70-220) Calcium Level 9.6mg/dl (8.4-10.2) MILAGROS ENGLAND MD Jul 12, 2017 12:03
--- NOTE | 2017-07-12 12:04 | PDOCDIS ---
Discharge Instructions DIAGNOSIS Discharge Diagnosis NSTEMI-acute coronary syndrome; hyperlipidemia; COPD; tobacco abuse; medical noncompliance; CONDITION Patient Condition: Fair HOME CARE INSTRUCTIONS: Special Diet: CARDIAC DIET ACTIVITY: Activity Restrictions: Slowly Increase Activity Do not operate Machinery Do not operate Power Tool FOLLOW UP/APPOINTMENTS Follow-up Plan Afternoon Babysitter in 2 weeks; primary care doctor in 4 weeks MILAGROS ENGLAND MD Jul 12, 2017 12:04
[2017-07-12] MEDS ORDERED: NIT4 SL (12:07)
[2017-07-12] MEDS ORDERED: METO-448 PO (12:07)
[2017-07-12] MEDS ORDERED: PRAS10TA6 PO (12:07)
[2017-07-12] MEDS ORDERED: ATOR20TA65 PO (12:07)
--- NOTE | 2017-07-12 14:12 | RADRPT ---
Vent Rate: 55 bpm RR Interval: 0 msec NE Interval: 186 msec QRS Duration: 80 msec QT Interval: 424 msec QTC Interval: 405 msec P-R-T [place]: 52 - 8 - 60 degrees Sinus bradycardia Otherwise normal ECG Electronically Signed By: Chandana Montelongo [id number]
== END 2017-07-12 12:35 | disposition home or self-care (01) | DRG 247 ==
LOC: E/R 18:01 → MS4 19:26 → ICU 07-11 17:31
PROVIDERS: ADMIT Internal Medicine; ATTEND Internal Medicine
PROC: B2151ZZ Fluoroscopy of Left Heart using Low Osmolar Contrast (ICD-10-PCS; 2017-07-11)
PROC: 027135Z Dilation of Coronary Artery, Two Arteries with Two Drug-eluting Intraluminal Devices, Percutaneous Approach (ICD-10-PCS; principal; 2017-07-11 16:00)
PROC: 4A023N7 Measurement of Cardiac Sampling and Pressure, Left Heart, Percutaneous Approach (ICD-10-PCS; 2017-07-11 16:00)
PROC: B2101ZZ Fluoroscopy of Single Coronary Artery using Low Osmolar Contrast (ICD-10-PCS; 2017-07-11 16:00)
DX: I21.4 Non-ST elevation (NSTEMI) myocardial infarction (principal); I10 Essential (primary) hypertension; I25.10 Atherosclerotic heart disease of native coronary artery without angina pectoris; Z72.0 Tobacco use; E78.5 Hyperlipidemia, unspecified; Z91.19 Patient's noncompliance with other medical treatment and regimen; J44.9 Chronic obstructive pulmonary disease, unspecified; N52.9 Male erectile dysfunction, unspecified
CPT/HCPCS: 36415; 71010; 74176; 80048; 80053; 81003; 82550; 82553; 83690; 84484; 85025; 85610; 87081; 93005; 93306; 93458; 96372; C1725; C1874; C1876; C1887; C9600; C9601; J1644; J2250; J2405; J3010; J7030; Q9967

== ENCOUNTER → 2018-08-07 | Outpatient (CLI) | END | disposition home or self-care (01) ==